=== PATIENT | male | born 1940 | race Hispanic/Latino ===

== ENCOUNTER → 2017-08-27 | Outpatient (CLI) | payer BC, MEDICARE | END | disposition home or self-care (01) | LOC: RAH 08:03 | PROVIDERS: ATTEND Internal Medicine Medical Oncology | DX: D69.6 Thrombocytopenia, unspecified (principal) | CPT/HCPCS: 76700 ==

== ENCOUNTER → 2017-12-23 | Outpatient (CLI) | payer BC, MEDICARE ==
[~2017-12-23] MED LIST: LIDOCAINE HCL 1% MDV 50ML VIAL ONE
== END | disposition home or self-care (01) ==
LOC: OIH 13:34
PROVIDERS: ATTEND Internal Medicine
DX: M47.895 Other spondylosis, thoracolumbar region (principal)
CPT/HCPCS: 71046; J3490